=== PATIENT | male | born 1955 | race Caucasian/White ===

== ENCOUNTER 2017-05-05 22:38 | Emergency (ER) | payer OTHER ==
[~2017-05-05] VITALS: Ht 188 cm; Wt 82.5 kg
[2017-05-05] MEDS ORDERED: DIAZEPAM 5 MG TABLET ONE (23:45)
[2017-05-05] MEDS ORDERED: KETOROLAC 30 MG/1 ML ONE (23:45)
[2017-05-06] MEDS ORDERED: KETOROLAC 30 MG/1 ML IM ONE
[2017-05-06] MEDS ORDERED: DIAZEPAM 5 MG TABLET PO ONE
[2017-05-06 00:21] VITALS: BP 122/86
== END 2017-05-06 00:28 | disposition home or self-care (01) ==
LOC: ED 23:59
DX: M79.661 Pain in right lower leg (principal); M79.651 Pain in right thigh; M54.31 Sciatica, right side
CPT/HCPCS: 96372; 99283; J1885